=== PATIENT | male | born 1960 | race Caucasian/White ===

== ENCOUNTER 2018-11-27 17:46 | Emergency (ER) | payer OTHER ==
[2018-11-27] MEDS ORDERED: Ketorolac Tromethamine 60 MG/2 ML VIAL ONE (18:48)
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
== END 2018-11-27 19:04 | disposition home or self-care (01) ==
LOC: ERS 17:46
DX: M79.10 Myalgia, unspecified site (principal); K21.9 Gastro-esophageal reflux disease without esophagitis; E78.2 Mixed hyperlipidemia; I10 Essential (primary) hypertension; Z87.891 Personal history of nicotine dependence; Z79.899 Other long term (current) drug therapy; V43.62XA Car passenger injured in collision with other type car in traffic accident, initial encounter
CPT/HCPCS: 96372; J1885